=== PATIENT | male | born 1950 | race Asian ===

== ENCOUNTER 2018-06-20 15:49 | Emergency (ER) | payer SELFPAY ==
[~2018-06-20] VITALS: Ht 165.1 cm; Wt 74.4 kg
[2018-06-20 16:06] VITALS: Ht 165.1 cm; Wt 74.4 kg
[2018-06-20 17:12] LABS: BASOPHIL % 0.4 % (0-2); PLATELET COUNT 178 x10^3mcL (130-400); RED CELL DISTRIBUTION WIDTH 14.2 % (11.5-14.5)
[2018-06-20 17:13] LABS: microscopic required? YES; urine erythrocyte TRACE (NEGATIVE)
[2018-06-20 17:19] LABS: CALCIUM 9.3 mg/dL (8.5-10.1); CARBON DIOXIDE 27.9 mmol/L (21-32); CREATININE SERUM 1.6 mg/dL (0.7-1.3); POTASSIUM SERUM 3.3 mmol/L (3.5-5.1)
[2018-06-20 17:24] LABS: BILIRUBIN TOTAL 0.6 mg/dL (0.20-1.00); MAGNESIUM 2.3 mg/dL (1.8-2.4); PHOSPHOROUS 3.5 mg/dL (2.5-4.9); TOTAL PROTEIN, SERUM 8.1 g/dL (6.4-8.2)
[2018-06-20 19:10] VITALS: BP 154/89
== END 2018-06-20 19:10 | disposition left against medical advice (07) ==
LOC: ED 15:49 → DU 18:12 → ED 18:12
PROVIDERS: Emergency Medicine
DX: I63.89 Other cerebral infarction (principal); I10 Essential (primary) hypertension
CPT/HCPCS: 36415; Q0092